=== PATIENT | female | born 1975 | race Caucasian/White ===

== ENCOUNTER 2016-09-05 09:28 | Outpatient (CLI) | payer OTHER ==
[~2016-09-05] VITALS: Ht 165.1 cm; Wt 124.7 kg
[~2016-09-05 09:28] MED LIST: ABILIFY2 MG PO; ALPRAZOLAM0.5 MG PO; ATARAX,VISTARIL25 MG PO; BENADRYL25 MG PO; BENTYL20 MG PO; CHILD ASPIRIN81 M1 PO; COUMADIN1 MG PO; DIAZEPAM5 MG PO; EFFEXOR XR150 MG PO; EFFEXOR75 MG PO; FIORICET,ESG1 TABLET PO; HUMALOG100 UNIT/1 SC; HUMULIN 70100 UNIT/2 SC; HUMULIN N100 UNITS/ SC; HYDROCHLOROTHIAZIDE PO; JANUVIA100 MG PO; LEVOTHYROXINE50 MCG PO; LEXAPRO20 MG PO; LOESTRIN 241 TABLET PO; LOVENOX100 MG/1 M SC; LOVENOX150 MG/1 M SC; LOVENOX80 MG/0.8 SC; METFORMIN HCL500 MG PO; METOPROLOL SUCC50 MG PO; MYRBETRIQ25 MG PO; NORCO 5/3251 TABLET PO; PAXIL30 MG PO; PAXIL40 MG PO; PROTONIX40 MG PO; PROZAC20 MG PO; TRAZODONE HCL100 MG PO; VENLAFAXINE HC150 MG PO; XANAX XR1 MG PO; XANAX XR2 MG PO; XANAX0.5 MG PO; XARELTO15 MG PO; XARELTO20 MG PO; ZANTAC150 MG PO; [UNRECOGNIZED DRUG - OTHER] MISC
[2016-09-05 10:32] LABS: EOSINOPHIL (%) 0.1 % (0-5); HEMATOCRIT 34.6 % (36.0-46.0); IMMATURE GRANULOCYTE (%) 0.3 % (0.0-0.7); IMMATURE GRANULOCYTE COUNT 0.5 K/uL; LYMPHOCYTE COUNT 2.6 K/uL (1.0-2.8); MCH 29.7 PG (29.0-34.0); MCHC 33.8 G/DL (30.0-36.0); MCV 87.8 FL (83-99); MEAN PLAT.VOLUME 10.1 uM^3 (9.5-12.4); MONOCYTE (%) 4.4 % (3-12); MONOCYTE COUNT 0.8 K/uL (0-0.8); NEUTROPHIL (%) 80.4 % (45-76); NEUTROPHIL COUNT 13.9 K/uL (1.8-6.4); PLATELET COUNT 409 K/uL (156-360); RBC DIS.WIDTH-CV 15.3 % (11.8-14.6); RED BLOOD COUNT 3.94 M/uL (3.80-5.20); WHITE BLOOD COUNT 17.3 K/uL (4.1-10.2)
[2016-09-05 10:41] LABS: CHLORIDE 107 mEq/L (99-109); POTASSIUM 3.7 mEq/L (3.7-5.4); SODIUM 137 mEq/L (136-147)
[2016-09-05 10:43] LABS: GLUCOSE 170 mg/dL (70-99)
[2016-09-05 10:44] LABS: ADD MIUA? YES; BILIRUBIN NEGATIVE; BLOOD NEGATIVE; COLOR YELLOW ((YELLOW)); GLUCOSE (STRIP) NEGATIVE; KETONES TRACE; LEUKOCYTES SMALL; NITRITE NEGATIVE; PH, URINE 6.5 (5-8); PROTEIN (STRIP) NEGATIVE; SPECIFIC GRAVITY 1.007 (1.000-1.030); UROBILINOGEN 0.2 MG/DL (0.2-1.0)
[2016-09-05 10:45] LABS: ANION GAP 12 MEQ/L (2-14)
[2016-09-05 10:46] LABS: TOTAL BILIRUBIN 0.5 mg/dL (0.0-1.0)
[2016-09-05 10:47] LABS: ALKALINE PHOSPHATASE 134 IU/L (3-129); GFR ESTIMATE (CALCULATED) > 59 mL/min/
[2016-09-05 10:48] LABS: UREA NITROGEN (BUN) 6 mg/dL (9-23)
[2016-09-05 10:50] LABS: URIC ACID 4.2 mg/dL (3.1-9.2)
[2016-09-05 11:14] LABS: EPITHELIAL CELLS 2+; MUCUS NONE SEEN; RED BLOOD CELLS NONE SEEN /HPF (0-5)
[2016-09-05 11:15] LABS: BACTERIA 1+; CASTS NONE SEEN /LPF; CRYSTALS NONE SEEN; UCUL ADDED? NO
[2016-09-05 11:22] LABS: LACTATE DEHYDROGENASE 251 IU/L (20-246)
[2016-09-05] MEDS ORDERED: ARIPIPRAZOLE5 MG PO (12:24)
[2016-09-05] MEDS ORDERED: HUMULIN N100 UNITS/ SC (12:28)
[2016-09-05] MEDS ORDERED: PRENATAL TABLE1 EAC3 PO (12:28)
[2016-09-05] MEDS ORDERED: LEVO-T75 MCG PO (12:29)
[2016-09-05] MEDS ORDERED: DIAZEPAM5 MG PO (12:30)
[2016-09-05] MEDS ORDERED: AMBIEN10 MG PO (12:30)
[2016-09-05] MEDS ORDERED: MAKENA250 MG/11 IM (12:30)
[2016-09-05] MEDS ORDERED: SENNA PLUS TAB1 EACH PO (12:31)
[2016-09-05] MEDS ORDERED: HUMALOG100 UNIT/1 SC ×3 (12:33→12:34)
[2016-09-05 13:37] VITALS: BP 119/68
[2016-09-05 15:03] LABS: EOSINOPHIL (%) 0.1 % (0-5); HEMATOCRIT 33.2 % (36.0-46.0); IMMATURE GRANULOCYTE (%) 0.4 % (0.0-0.7); IMMATURE GRANULOCYTE COUNT 0.1 K/uL; LYMPHOCYTE COUNT 2.2 K/uL (1.0-2.8); MCHC 32.5 G/DL (30.0-36.0); MCV 89.2 FL (83-99); MEAN PLAT.VOLUME 10.2 uM^3 (9.5-12.4); MONOCYTE (%) 4.8 % (3-12); MONOCYTE COUNT 0.7 K/uL (0-0.8); NEUTROPHIL (%) 78.7 % (45-76); NEUTROPHIL COUNT 10.7 K/uL (1.8-6.4); PLATELET COUNT 356 K/uL (156-360); RBC DIS.WIDTH-CV 15.7 % (11.8-14.6); RBC DIS.WIDTH-SD 50.7 % (39-53); RED BLOOD COUNT 3.72 M/uL (3.80-5.20); WHITE BLOOD COUNT 13.6 K/uL (4.1-10.2)
[2016-09-05 15:24] LABS: ANION GAP 10 MEQ/L (2-14); CHLORIDE 107 MEQ/L (99-109); POTASSIUM 4.1 MEQ/L (3.7-5.4); SAMPLE HEMOLYSIS CHECK 0; SAMPLE ICTERIC CHECK 0; SAMPLE LIPEMIA CHECK 0; SODIUM 139 MEQ/L (136-147); TOTAL BILIRUBIN 0.4 MG/DL (0.0-1.0)
[2016-09-05 15:29] LABS: ALKALINE PHOSPHATASE 119 IU/L (3-129); GFR ESTIMATE (CALCULATED) > 59 mL/min/; UREA NITROGEN (BUN) 5 mg/dL (9-23)
[2016-09-05 15:36] LABS: GLUCOSE 119 mg/dL (70-99); LACTATE DEHYDROGENASE 190 IU/L (20-246)
[2016-09-05 17:17] VITALS: BP 116/59
[2016-09-05 20:17] VITALS: BP 121/67
[2016-09-05 20:55] LABS: MCH 29.7 PG (29.0-34.0); MCHC 33.2 G/DL (30.0-36.0); MCV 89.5 FL (83-99); MEAN PLAT.VOLUME 10.5 uM^3 (9.5-12.4); PLATELET COUNT 370 K/uL (156-360); RBC DIS.WIDTH-CV 15.5 % (11.8-14.6); WHITE BLOOD COUNT 12.8 K/uL (4.1-10.2)
[2016-09-05 21:19] LABS: ALKALINE PHOSPHATASE 109 IU/L (3-129); ANION GAP 10 MEQ/L (2-14); CHLORIDE 106 MEQ/L (99-109); GFR ESTIMATE (CALCULATED) > 59 mL/min/; GLUCOSE 121 mg/dL (70-99); SAMPLE HEMOLYSIS CHECK 0; SAMPLE ICTERIC CHECK 0; SAMPLE LIPEMIA CHECK 0; SODIUM 136 MEQ/L (136-147); TOTAL BILIRUBIN 0.4 MG/DL (0.0-1.0); UREA NITROGEN (BUN) 5 mg/dL (9-23)
[2016-09-05 22:48] LABS: SAMPLE HEMOLYSIS CHECK 0; SAMPLE ICTERIC CHECK 0; SAMPLE LIPEMIA CHECK 0
[2016-09-05 22:54] LABS: SERUM ETHYL ALCOHOL < 10 mg/dL
[2016-09-05 23:12] LABS: AMPHETAMINES QUANT VALUE 0 NG/ML; BARBITUATES QUANT VALUE 0 NG/ML; BENZODIAZEPINES, URINE SCREEN POSITIVE (200 ng/mL); MARIJUANA QUANT VALUE 0 NG/ML; OPIATES QUANTITATIVE VALUE 0 NG/ML; PHENCYCLIDINE QUANT VALUE 0 NG/ML
[2016-09-05 23:17] VITALS: BP 120/65
[2016-09-06 04:18] VITALS: BP 117/59
[2016-09-06 05:59] LABS: HEMATOCRIT 32.3 % (36.0-46.0); MCH 29.1 PG (29.0-34.0); MCHC 32.5 G/DL (30.0-36.0); MCV 89.5 FL (83-99); MEAN PLAT.VOLUME 10.4 uM^3 (9.5-12.4); PLATELET COUNT 342 K/uL (156-360); RBC DIS.WIDTH-CV 15.7 % (11.8-14.6); RBC DIS.WIDTH-SD 50.7 % (39-53); RED BLOOD COUNT 3.61 M/uL (3.80-5.20); WHITE BLOOD COUNT 12.8 K/uL (4.1-10.2)
[2016-09-06 06:23] LABS: ALKALINE PHOSPHATASE 103 IU/L (3-129); AMYLASE 18 IU/L (1-118); ANION GAP 10 MEQ/L (2-14); CHLORIDE 104 MEQ/L (99-109); GFR ESTIMATE (CALCULATED) > 59 mL/min/; GLUCOSE 95 mg/dL (70-99); LIPASE 16 U/L (1.0-51.0); POTASSIUM 3.8 MEQ/L (3.7-5.4); SAMPLE HEMOLYSIS CHECK 0; SAMPLE ICTERIC CHECK 0; SAMPLE LIPEMIA CHECK 0; SODIUM 135 MEQ/L (136-147); UREA NITROGEN (BUN) 6 mg/dL (9-23)
[2016-09-06 06:26] LABS: TOTAL BILIRUBIN 0.5 MG/DL (0.0-1.0)
[2016-09-06 08:28] VITALS: BP 138/76
[2016-09-06 09:40] LABS: POINT-OF-CARE METER ID UU13113742
[2016-09-06 10:30] LABS: HBSG INDEX 0.14
[2016-09-06 10:31] LABS: HPCA INDEX 0.19
[2016-09-06 11:07] LABS: POINT-OF-CARE METER ID UU13113742
[2016-09-06 12:43] LABS: POINT-OF-CARE METER ID UU13113692; POINT-OF-CARE USER ID RADDNY
[2016-09-06 12:43] LABS: POINT-OF-CARE METER ID UU13113692
[2016-09-06 12:43] LABS: POINT-OF-CARE METER ID UU13113692
[2016-09-06 13:06] LABS: POINT-OF-CARE METER ID UU13113742
[2016-09-06 15:17] VITALS: BP 125/61
[2016-09-06 15:21] LABS: POINT-OF-CARE METER ID UU13113742
[2016-09-06 15:21] LABS: POINT-OF-CARE METER ID UU13113742
[2016-09-06 15:23] LABS: POINT-OF-CARE METER ID UU13113742
[2016-09-06 16:30] LABS: POINT-OF-CARE METER ID UU13113742
[2016-09-06 17:10] LABS: POINT-OF-CARE METER ID UU13113742
[2016-09-06 17:48] LABS: POINT-OF-CARE METER ID UU13113742
[2016-09-06 19:30] VITALS: BP 120/56
[2016-09-06 19:41] LABS: POINT-OF-CARE METER ID UU13113742
[2016-09-06 22:43] LABS: POINT-OF-CARE METER ID UU13113742
[2016-09-06 23:50] VITALS: BP 108/56
[2016-09-07 04:14] VITALS: BP 130/60
[2016-09-07 06:23] LABS: POINT-OF-CARE METER ID UU13113742
[2016-09-07 07:41] VITALS: BP 116/59
[2016-09-07 08:02] LABS: HEMATOCRIT 33.8 % (36.0-46.0); MCH 28.9 PG (29.0-34.0); MCV 90.4 FL (83-99); MEAN PLAT.VOLUME 10.2 uM^3 (9.5-12.4); PLATELET COUNT 351 K/uL (156-360); RBC DIS.WIDTH-CV 15.8 % (11.8-14.6); RBC DIS.WIDTH-SD 51.8 % (39-53); RED BLOOD COUNT 3.74 M/uL (3.80-5.20); WHITE BLOOD COUNT 14.2 K/uL (4.1-10.2)
[2016-09-07 08:13] LABS: ANION GAP 9 MEQ/L (2-14); CHLORIDE 103 MEQ/L (99-109); POTASSIUM 4.1 MEQ/L (3.7-5.4); SAMPLE HEMOLYSIS CHECK 0; SAMPLE ICTERIC CHECK 0; SAMPLE LIPEMIA CHECK 0; SODIUM 136 MEQ/L (136-147); TOTAL BILIRUBIN 0.4 MG/DL (0.0-1.0)
[2016-09-07 08:19] LABS: ALKALINE PHOSPHATASE 113 IU/L (3-129); GFR ESTIMATE (CALCULATED) > 59 mL/min/; GLUCOSE 88 mg/dL (70-99); UREA NITROGEN (BUN) 8 mg/dL (9-23)
[2016-09-07 09:44] LABS: POINT-OF-CARE METER ID UU13113774
[2016-09-07 12:38] LABS: POINT-OF-CARE METER ID UU13113774
[2016-09-07 13:18] LABS: POINT-OF-CARE METER ID UU13113774
[2016-09-07 13:28] LABS: POINT-OF-CARE METER ID UU13113742
[2016-09-07 13:29] LABS: POINT-OF-CARE METER ID UU13113742
[2016-09-07] MEDS ORDERED: LORAZEPAM1 MG PO (13:42)
[2016-09-07] MEDS ORDERED: SYNTHROID100 MCG PO (16:52)
[2016-09-07 16:57] LABS: POINT-OF-CARE METER ID UU13113774
== END 2016-09-07 17:20 | disposition home or self-care (01) ==
LOC: EME → EDBD 09:28 → LDRP-OP 09:28 → 2WEST 13:31 → EDSTATUS 13:31 → 2WEST 13:31
PROVIDERS: Emergency Medicine; Obstetrics & Gynecology
DX: O99.342 Other mental disorders complicating pregnancy, second trimester (principal); F41.0 Panic disorder [episodic paroxysmal anxiety]; O10.012 Pre-existing essential hypertension complicating pregnancy, second trimester; O24.312 Unspecified pre-existing diabetes mellitus in pregnancy, second trimester; E11.9 Type 2 diabetes mellitus without complications; O34.32 Maternal care for cervical incompetence, second trimester; O99.282 Endocrine, nutritional and metabolic diseases complicating pregnancy, second trimester; R79.89 Other specified abnormal findings of blood chemistry; E03.9 Hypothyroidism, unspecified; F41.9 Anxiety disorder, unspecified; Z3A.26 26 weeks gestation of pregnancy; Z86.718 Personal history of other venous thrombosis and embolism; O09.522 Supervision of elderly multigravida, second trimester; O09.892 Supervision of other high risk pregnancies, second trimester
CPT/HCPCS: 59025; 76705; 80053; 81003; 81050; 82150; 82948; 83615; 83690; 84156; 84550; 85025; 85025 91; 85027; 86803; 87340; 99281; 99284; G0378; G0480; J0702; J1650; J1815; J2060; J7030

== ENCOUNTER 2016-10-22 17:21 | Emergency (ER) | payer OTHER ==
[~2016-10-22] VITALS: Ht 165.1 cm; Wt 119.7 kg
[~2016-10-22 17:21] MED LIST changes: +AMBIEN10 MG PO; +ARIPIPRAZOLE5 MG PO; +LEVO-T75 MCG PO; +LORAZEPAM1 MG PO; +MAKENA250 MG/11 IM; +PRENATAL TABLE1 EAC3 PO; +SENNA PLUS TAB1 EACH PO; +SYNTHROID100 MCG PO
[2016-10-22 18:06] LABS: HEMATOCRIT 36.8 % (36.0-46.0); MCH 27.8 PG (29.0-34.0); MCHC 32.6 G/DL (30.0-36.0); MCV 85.2 FL (83-99); PLATELET COUNT 334 K/uL (156-360); RBC DIS.WIDTH-CV 15.6 % (11.8-14.6); RBC DIS.WIDTH-SD 47.3 % (39-53); RED BLOOD COUNT 4.32 M/uL (3.80-5.20); WHITE BLOOD COUNT 13.8 K/uL (4.1-10.2)
[2016-10-22 18:14] LABS: CHLORIDE 106 mEq/L (99-109); POTASSIUM 4.2 mEq/L (3.7-5.4); SODIUM 136 mEq/L (136-147)
[2016-10-22 18:16] LABS: GLUCOSE 88 mg/dL (70-99)
[2016-10-22 18:17] LABS: ANION GAP 10 MEQ/L (2-14)
[2016-10-22 18:19] LABS: SERUM ETHYL ALCOHOL < 10 mg/dL
[2016-10-22 18:20] LABS: GFR ESTIMATE (CALCULATED) > 59 mL/min/
[2016-10-22 18:21] LABS: UREA NITROGEN (BUN) 7 mg/dL (9-23)
[2016-10-22 18:42] LABS: AMPHETAMINE NEGATIVE (500 ng/mL); BARBITURATES NEGATIVE (200 ng/mL); BENZODIAZEPINES PRESUMPTIVE POSITIVE (150 ng/mL); COCAINE NEGATIVE (150 ng/mL); INTERNAL CONTROLS VALID? YES; METHADONE NEGATIVE (200 ng/mL); METHAMPHETAMINE NEGATIVE (500 ng/mL); OPIATES (MORPHINE) PRESUMPTIVE POSITIVE (100 ng/mL); OXYCODONE NEGATIVE (100 ng/mL); PHENCYCLIDINE NEGATIVE (25 ng/mL); PROPOXYPHENE NEGATIVE (300 ng/mL); THC CANNABINOIDS NEGATIVE (50 ng/mL); TRICYCLIC ANTIDEPRESSANTS NEGATIVE (300 ng/mL)
[2016-10-22 18:43] LABS: ADD MEDTOX COMMENT Y
[2016-10-22 19:21] LABS: BENZODIAZEPINES QUANT VALUE 0 NG/ML; OPIATES QUANTITATIVE VALUE 0 NG/ML
[2016-10-22] MEDS ORDERED: ATIVAN2 MG PO (19:21)
[2016-10-22 19:26] LABS: BENZODIAZEPINES, URINE SCREEN Negative (200 ng/mL)
[2016-10-22 20:31] VITALS: BP 131/87
== END 2016-10-22 20:33 | disposition home or self-care (01) ==
LOC: EME 17:21
DX: O99.343 Other mental disorders complicating pregnancy, third trimester (principal); F32.9 Major depressive disorder, single episode, unspecified; D72.829 Elevated white blood cell count, unspecified; O09.523 Supervision of elderly multigravida, third trimester; O24.313 Unspecified pre-existing diabetes mellitus in pregnancy, third trimester; E11.9 Type 2 diabetes mellitus without complications; O10.913 Unspecified pre-existing hypertension complicating pregnancy, third trimester; Z79.4 Long term (current) use of insulin; Z3A.33 33 weeks gestation of pregnancy; Z79.82 Long term (current) use of aspirin
CPT/HCPCS: 80048; 84999; 85027; 90839; 99281; 99285; G0480

== ENCOUNTER 2016-10-31 11:23 | Inpatient (IN) | payer OTHER ==
[2016-10-31] VITALS (7 sets, daily range): BP systolic 116–129; BP diastolic 58–70
[~2016-10-31] VITALS: Ht 165.1 cm; Wt 120.2 kg
[~2016-10-31 11:23] MED LIST changes: +ATIVAN2 MG PO
[2016-10-31] MEDS ORDERED: LO-DOSE ASPIRIN81 M2 PO (12:32)
[2016-10-31] MEDS ORDERED: AMBIEN10 MG PO (12:33)
[2016-10-31] MEDS ORDERED: SEROQUEL100 MG PO (12:33)
[2016-10-31 13:04] LABS: EOSINOPHIL (%) 0.7 % (0-5); EOSINOPHIL COUNT 0.1 K/uL (0-0.3); HEMATOCRIT 33.7 % (36.0-46.0); IMMATURE GRANULOCYTE (%) 0.2 % (0.0-0.7); MCH 27.6 PG (29.0-34.0); MCHC 32.6 G/DL (30.0-36.0); MCV 84.7 FL (83-99); MEAN PLAT.VOLUME 11.8 uM^3 (9.5-12.4); MONOCYTE (%) 4.9 % (3-12); MONOCYTE COUNT 0.6 K/uL (0-0.8); NEUTROPHIL (%) 69.4 % (45-76); NEUTROPHIL COUNT 8.5 K/uL (1.8-6.4); PLATELET COUNT 302 K/uL (156-360); RBC DIS.WIDTH-CV 15.6 % (11.8-14.6); RBC DIS.WIDTH-SD 48.3 % (39-53); RED BLOOD COUNT 3.98 M/uL (3.80-5.20); WHITE BLOOD COUNT 12.3 K/uL (4.1-10.2)
[2016-10-31 13:08] LABS: ALKALINE PHOSPHATASE 126 IU/L (3-129); ANION GAP 10 MEQ/L (2-14); CHLORIDE 102 MEQ/L (99-109); GFR ESTIMATE (CALCULATED) > 59 mL/min/; GLUCOSE 131 mg/dL (70-99); POTASSIUM 4.6 MEQ/L (3.7-5.4); SAMPLE HEMOLYSIS CHECK 0; SAMPLE ICTERIC CHECK 0; SAMPLE LIPEMIA CHECK 0; SODIUM 133 MEQ/L (136-147); TOTAL BILIRUBIN 0.4 MG/DL (0.0-1.0); UREA NITROGEN (BUN) 7 mg/dL (9-23)
[2016-10-31 13:10] LABS: PROTHROMBIN TIME 9.9 (9.2-11.2); PTT 29.6 (25-32)
[2016-10-31 16:24] LABS: POINT-OF-CARE METER ID UU14188576
[2016-11-01] VITALS (21 sets, daily range): BP systolic 99–145; BP diastolic 55–76
[2016-11-01 00:16] LABS: POINT-OF-CARE METER ID UU13113692
[2016-11-01 00:16] LABS: POINT-OF-CARE METER ID UU13113692
[2016-11-01 05:58] LABS: POINT-OF-CARE METER ID UU14188576
[2016-11-01 10:54] LABS: POINT-OF-CARE METER ID UU14188576
[2016-11-01 15:06] LABS: POINT-OF-CARE METER ID UU14188576
[2016-11-01 15:35] LABS: DRSB INTERNAL CONTROL PASS; PROBE CHECK PASS; SPECIMEN PROCESSING CONTROL PASS
[2016-11-01 18:56] LABS: POINT-OF-CARE METER ID UU14188576
[2016-11-01] MEDS ORDERED: IBUPROFEN800 MG PO (20:36)
[2016-11-01] MEDS ORDERED: ENDOCET 5-3251 EACH PO (20:36)
[2016-11-01 20:39] LABS: POINT-OF-CARE METER ID UU13113675
[2016-11-02] VITALS (9 sets, daily range): BP systolic 100–128; BP diastolic 53–79
[2016-11-02 06:46] LABS: EOSINOPHIL (%) 0.3 % (0-5); IMMATURE GRANULOCYTE (%) 0.4 % (0.0-0.7); LYMPHOCYTE COUNT 2.6 K/uL (1.0-2.8); MCH 26.5 PG (29.0-34.0); MCHC 31.1 G/DL (30.0-36.0); MCV 85.2 FL (83-99); MEAN PLAT.VOLUME 11.1 uM^3 (9.5-12.4); MONOCYTE (%) 4.8 % (3-12); MONOCYTE COUNT 0.5 K/uL (0-0.8); NEUTROPHIL (%) 70.3 % (45-76); NEUTROPHIL COUNT 7.6 K/uL (1.8-6.4); PLATELET COUNT 255 K/uL (156-360); RBC DIS.WIDTH-CV 15.7 % (11.8-14.6); RBC DIS.WIDTH-SD 49.1 % (39-53); WHITE BLOOD COUNT 10.8 K/uL (4.1-10.2)
[2016-11-02 06:47] LABS: RED BLOOD COUNT 3.17 M/uL (3.80-5.20)
[2016-11-02 10:14] LABS: POINT-OF-CARE METER ID UU13113692
[2016-11-02 10:14] LABS: POINT-OF-CARE METER ID UU13113692
[2016-11-03] VITALS (7 sets, daily range): BP systolic 111–167; BP diastolic 60–77
[2016-11-03 18:34] LABS: POINT-OF-CARE METER ID UU14188576; POINT-OF-CARE USER ID 608261309
[2016-11-03 21:41] LABS: POINT-OF-CARE METER ID UU14188576
[2016-11-04 04:02] VITALS: BP 122/68
[2016-11-04 06:22] LABS: POINT-OF-CARE METER ID UU13113770
[2016-11-04 07:41] VITALS: BP 130/62
[2016-11-04 09:09] LABS: POINT-OF-CARE METER ID UU14188576
[2016-11-04 11:14] LABS: POINT-OF-CARE METER ID UU14188576
[2016-11-04 11:22] VITALS: BP 136/68
[2016-11-04 11:51] LABS: POINT-OF-CARE METER ID UU14188576
[2016-11-04 13:36] LABS: POINT-OF-CARE METER ID UU14188576
[2016-11-04 16:55] LABS: POINT-OF-CARE METER ID UU14188576
[2016-11-04 18:27] LABS: POINT-OF-CARE METER ID UU13113742
[2016-11-04 21:30] VITALS: BP 178/73
[2016-11-04 21:32] VITALS: BP 160/76
[2016-11-04 21:45] LABS: POINT-OF-CARE METER ID UU13113742
[2016-11-05 00:47] VITALS: BP 145/70
[2016-11-05 06:32] VITALS: BP 160/74
[2016-11-05 06:41] LABS: POINT-OF-CARE METER ID UU14188576
[2016-11-05 07:38] VITALS: BP 129/69
[2016-11-05 10:07] LABS: POINT-OF-CARE METER ID UU14188576
[2016-11-05 12:31] LABS: POINT-OF-CARE METER ID UU14188576
[2016-11-08 09:20] LABS: POINT-OF-CARE METER ID UU13113692
[2016-11-08 09:20] LABS: POINT-OF-CARE METER ID UU13113692
[2016-11-08 09:20] LABS: POINT-OF-CARE METER ID UU13113692
[2016-11-08 09:21] LABS: POINT-OF-CARE METER ID UU13113692
[2016-11-08 09:21] LABS: POINT-OF-CARE METER ID UU13113692
[2016-11-08 09:21] LABS: POINT-OF-CARE METER ID UU13113692
[2016-11-08 09:21] LABS: POINT-OF-CARE METER ID UU13113692
[2016-11-08 09:21] LABS: POINT-OF-CARE METER ID UU13113692
== END 2016-11-05 13:20 | disposition home or self-care (01) | DRG 765 ==
LOC: LDRP-OP → 2WEST 11:24 → LDRP-OP 01-07 22:24
PROVIDERS: Obstetrics & Gynecology
PROC: 3E033VJ Introduction of Other Hormone into Peripheral Vein, Percutaneous Approach (ICD-10-PCS; principal; 2016-10-31)
PROC: 10907ZC Drainage of Amniotic Fluid, Therapeutic from Products of Conception, Via Natural or Artificial Opening (ICD-10-PCS; 2016-11-01)
PROC: 00HU33Z Insertion of Infusion Device into Spinal Canal, Percutaneous Approach (ICD-10-PCS; 2016-11-01)
PROC: 10D00Z1 Extraction of Products of Conception, Low, Open Approach (ICD-10-PCS; 2016-11-01)
PROC: 3E0S3CZ (ICD-10-PCS; 2016-11-01)
PROC: [UNRECOGNIZED PROCEDURE] (2016-11-01)
DX: O10.02 Pre-existing essential hypertension complicating childbirth (principal); O24.12 Pre-existing type 2 diabetes mellitus, in childbirth; Z68.41 Body mass index [BMI] 40.0-44.9, adult; O26.873 Cervical shortening, third trimester; O76 Abnormality in fetal heart rate and rhythm complicating labor and delivery; O69.81X0 Labor and delivery complicated by cord around neck, without compression, not applicable or unspecified; E11.9 Type 2 diabetes mellitus without complications; Z3A.34 34 weeks gestation of pregnancy; Z37.0 Single live birth; O09.523 Supervision of elderly multigravida, third trimester; E66.9 Obesity, unspecified; O99.214 Obesity complicating childbirth; O99.344 Other mental disorders complicating childbirth; F32.9 Major depressive disorder, single episode, unspecified; F41.0 Panic disorder [episodic paroxysmal anxiety]
CPT/HCPCS: 80053; 82948; 85025; 85610; 85730; 86850; 86900; 86901; 87081; 87653; 88307; C1755; G0378; J0690; J0702; J1170; J1650; J1815; J2060; J2250; J2274; J2405; J2540; J2590; J2795; J3010; J7120

== ENCOUNTER 2017-01-06 06:34 | Emergency (ER) | payer OTHER ==
[~2017-01-06] VITALS: Ht 165.1 cm; Wt 116.2 kg
[~2017-01-06 06:34] MED LIST changes: +ENDOCET 5-3251 EACH PO; +IBUPROFEN800 MG PO; +LO-DOSE ASPIRIN81 M2 PO; +SEROQUEL100 MG PO
[2017-01-06] MEDS ORDERED: PAXIL30 MG PO (07:06)
[2017-01-06] MEDS ORDERED: SYNTHROID125 MCG PO (07:06)
[2017-01-06] MEDS ORDERED: ABILIFY2 MG PO (07:07)
[2017-01-06] MEDS ORDERED: ATIVAN2 MG PO (07:07)
[2017-01-06] MEDS ORDERED: ZANTAC150 MG PO (07:08)
[2017-01-06] MEDS ORDERED: LISINOPRIL5 MG PO (07:08)
[2017-01-06] MEDS ORDERED: METFORMIN HCL500 MG PO (07:09)
[2017-01-06] MEDS ORDERED: SEROQUEL50 MG PO (07:09)
[2017-01-06 09:01] VITALS: BP 122/94
== END 2017-01-06 09:12 | disposition home or self-care (01) ==
LOC: EME 06:34
DX: F41.9 Anxiety disorder, unspecified (principal); G47.00 Insomnia, unspecified; R25.1 Tremor, unspecified; I10 Essential (primary) hypertension; E11.9 Type 2 diabetes mellitus without complications; E03.9 Hypothyroidism, unspecified; Z79.4 Long term (current) use of insulin; Z79.82 Long term (current) use of aspirin; Z88.8 Allergy status to other drugs, medicaments and biological substances
CPT/HCPCS: 90839; 99281; 99283

== ENCOUNTER 2017-01-12 20:54 | Emergency (ER) | payer OTHER ==
[~2017-01-12] VITALS: Ht 165.1 cm; Wt 115.8 kg
[~2017-01-12 20:54] MED LIST changes: +LISINOPRIL5 MG PO; +SEROQUEL50 MG PO; +SYNTHROID125 MCG PO
[2017-01-12 21:59] LABS: EOSINOPHIL (%) 1.1 % (0-5); EOSINOPHIL COUNT 0.1 K/uL (0-0.3); HEMATOCRIT 35.7 % (36.0-46.0); IMMATURE GRANULOCYTE (%) 0.4 % (0.0-0.7); INSTRUMENT ABS NEUTROPHIL CT 6.4 K/uL; LYMPHOCYTE COUNT 3.6 K/uL (1.0-2.8); MCH 25.2 PG (29.0-34.0); MCHC 30.5 G/DL (30.0-36.0); MCV 82.4 FL (83-99); MEAN PLAT.VOLUME 9.8 uM^3 (9.5-12.4); MONOCYTE (%) 6.4 % (3-12); MONOCYTE COUNT 0.7 K/uL (0-0.8); NEUTROPHIL (%) 58.7 % (45-76); NEUTROPHIL COUNT 6.4 K/uL (1.8-6.4); PLATELET COUNT 420 K/uL (156-360); RBC DIS.WIDTH-CV 17.5 % (11.8-14.6); RBC DIS.WIDTH-SD 52.1 % (39-53); RED BLOOD COUNT 4.33 M/uL (3.80-5.20); WHITE BLOOD COUNT 10.9 K/uL (4.1-10.2)
[2017-01-12 22:07] LABS: CHLORIDE 106 mEq/L (99-109); POTASSIUM 4.1 mEq/L (3.7-5.4); SODIUM 139 mEq/L (136-147)
[2017-01-12 22:09] LABS: GLUCOSE 116 mg/dL (70-99)
[2017-01-12 22:10] LABS: ANION GAP 9 MEQ/L (2-14)
[2017-01-12 22:13] LABS: GFR ESTIMATE (CALCULATED) > 59 mL/min/
[2017-01-12 22:14] LABS: UREA NITROGEN (BUN) 10 mg/dL (9-23)
[2017-01-12 22:44] VITALS: BP 107/74
== END 2017-01-12 22:45 | disposition home or self-care (01) ==
LOC: EME 20:54
PROVIDERS: Emergency Medicine
DX: R42 Dizziness and giddiness (principal); E11.9 Type 2 diabetes mellitus without complications; I10 Essential (primary) hypertension; Z88.1 Allergy status to other antibiotic agents; Z88.2 Allergy status to sulfonamides
CPT/HCPCS: 80048; 85025; 99281; 99284

== ENCOUNTER 2017-02-06 18:17 | Emergency (ER) | payer OTHER ==
[~2017-02-06] VITALS: Ht 165.1 cm; Wt 113.7 kg
[2017-02-06 20:02] VITALS: BP 99/59
== END 2017-02-06 20:03 | disposition home or self-care (01) ==
LOC: EME 18:17
DX: F32.9 Major depressive disorder, single episode, unspecified (principal); F40.01 Agoraphobia with panic disorder; E11.9 Type 2 diabetes mellitus without complications; I10 Essential (primary) hypertension; E03.9 Hypothyroidism, unspecified; Z79.84 Long term (current) use of oral hypoglycemic drugs
CPT/HCPCS: 90839; 99281; 99284

== ENCOUNTER 2017-03-04 10:19 | Emergency (ER) | payer OTHER ==
[~2017-03-04] VITALS: Ht 165.1 cm; Wt 111.0 kg
[2017-03-04] MEDS ORDERED: ATIVAN1 MG PO (12:18)
[2017-03-04 12:48] VITALS: BP 130/99
== END 2017-03-04 12:49 | disposition home or self-care (01) ==
LOC: EME → EDBD 10:19 → EME 12:49
DX: F40.01 Agoraphobia with panic disorder (principal); F34.1 Dysthymic disorder; I10 Essential (primary) hypertension; E11.9 Type 2 diabetes mellitus without complications; Z79.84 Long term (current) use of oral hypoglycemic drugs
CPT/HCPCS: 90839; 99281; 99284

== ENCOUNTER 2017-03-05 18:15 | Emergency (ER) | payer OTHER ==
[~2017-03-05] VITALS: Ht 175.3 cm; Wt 112.1 kg
[~2017-03-05 18:15] MED LIST changes: +ATIVAN1 MG PO
[2017-03-05 18:54] LABS: HEMATOCRIT 39.5 % (36.0-46.0); MCH 24.7 PG (29.0-34.0); MCHC 30.9 G/DL (30.0-36.0); MEAN PLAT.VOLUME 10.2 uM^3 (9.5-12.4); PLATELET COUNT 522 K/uL (156-360); RBC DIS.WIDTH-CV 17.1 % (11.8-14.6); RBC DIS.WIDTH-SD 49.2 % (39-53); RED BLOOD COUNT 4.94 M/uL (3.80-5.20); WHITE BLOOD COUNT 12.9 K/uL (4.1-10.2)
[2017-03-05 19:06] LABS: CHLORIDE 104 mEq/L (99-109); POTASSIUM 3.9 mEq/L (3.7-5.4); SODIUM 139 mEq/L (136-147)
[2017-03-05 19:08] LABS: GLUCOSE 193 mg/dL (70-99)
[2017-03-05 19:09] LABS: ANION GAP 11 MEQ/L (2-14)
[2017-03-05 19:11] LABS: SERUM ETHYL ALCOHOL < 10 mg/dL
[2017-03-05 19:12] LABS: GFR ESTIMATE (CALCULATED) > 59 mL/min/
[2017-03-05 19:13] LABS: UREA NITROGEN (BUN) 12 mg/dL (9-23)
[2017-03-05 20:26] LABS: AMPHETAMINE NEGATIVE (500 ng/mL); BARBITURATES NEGATIVE (200 ng/mL); BENZODIAZEPINES PRESUMPTIVE POSITIVE (150 ng/mL); COCAINE NEGATIVE (150 ng/mL); INTERNAL CONTROLS VALID? YES; METHADONE NEGATIVE (200 ng/mL); METHAMPHETAMINE NEGATIVE (500 ng/mL); OPIATES (MORPHINE) NEGATIVE (100 ng/mL); OXYCODONE NEGATIVE (100 ng/mL); PHENCYCLIDINE NEGATIVE (25 ng/mL); PROPOXYPHENE NEGATIVE (300 ng/mL); THC CANNABINOIDS NEGATIVE (50 ng/mL); TRICYCLIC ANTIDEPRESSANTS NEGATIVE (300 ng/mL)
[2017-03-05 20:27] LABS: ADD MEDTOX COMMENT Y
[2017-03-05 21:44] LABS: BENZODIAZEPINES QUANT VALUE 0 NG/ML; BENZODIAZEPINES, URINE SCREEN Negative (200 ng/mL)
[2017-03-05 22:30] VITALS: BP 125/86
[2017-03-06 02:53] LABS: ADD MIUA? YES; BILIRUBIN NEGATIVE; BLOOD SMALL; COLOR YELLOW ((YELLOW)); GLUCOSE (STRIP) NEGATIVE; KETONES NEGATIVE; LEUKOCYTES NEGATIVE; NITRITE NEGATIVE; PROTEIN (STRIP) NEGATIVE; SPECIFIC GRAVITY 1.006 (1.000-1.030); UROBILINOGEN 0.2 MG/DL (0.2-1.0)
[2017-03-06 03:13] LABS: BACTERIA 2+ /HPF; EPITHELIAL CELLS 3+ /HPF; MUCUS NONE SEEN /LPF
[2017-03-06 03:14] LABS: CASTS NONE SEEN /LPF; CRYSTALS NONE SEEN
== END 2017-03-05 22:32 ==
LOC: EME 18:15
PROVIDERS: Emergency Medicine
DX: R45.851 Suicidal ideations (principal); F32.9 Major depressive disorder, single episode, unspecified; F41.1 Generalized anxiety disorder; E11.9 Type 2 diabetes mellitus without complications; Z79.84 Long term (current) use of oral hypoglycemic drugs; I10 Essential (primary) hypertension
CPT/HCPCS: 80048; 81003; 84999; 85027; 90837; 99281; 99285; G0480

== ENCOUNTER 2017-03-27 19:01 | Emergency (ER) | payer OTHER ==
[~2017-03-27] VITALS: Ht 165.1 cm; Wt 114.0 kg
[2017-03-27 20:11] LABS: AMPHETAMINE NEGATIVE (500 ng/mL); BARBITURATES NEGATIVE (200 ng/mL); BENZODIAZEPINES PRESUMPTIVE POSITIVE (150 ng/mL); COCAINE NEGATIVE (150 ng/mL); INTERNAL CONTROLS VALID? YES; METHADONE NEGATIVE (200 ng/mL); METHAMPHETAMINE NEGATIVE (500 ng/mL); OPIATES (MORPHINE) NEGATIVE (100 ng/mL); OXYCODONE NEGATIVE (100 ng/mL); PHENCYCLIDINE NEGATIVE (25 ng/mL); PROPOXYPHENE NEGATIVE (300 ng/mL); THC CANNABINOIDS NEGATIVE (50 ng/mL); TRICYCLIC ANTIDEPRESSANTS NEGATIVE (300 ng/mL)
[2017-03-27 20:12] LABS: ADD MEDTOX COMMENT Y
[2017-03-27 20:48] LABS: BENZODIAZEPINES QUANT VALUE 0 NG/ML; BENZODIAZEPINES, URINE SCREEN Negative (200 ng/mL)
[2017-03-27 21:15] LABS: HEMATOCRIT 35.4 % (36.0-46.0); MCH 24.9 PG (29.0-34.0); MCHC 31.1 G/DL (30.0-36.0); MCV 80.1 FL (83-99); MEAN PLAT.VOLUME 10.3 uM^3 (9.5-12.4); PLATELET COUNT 444 K/uL (156-360); RBC DIS.WIDTH-SD 49.5 % (39-53); RED BLOOD COUNT 4.42 M/uL (3.80-5.20); WHITE BLOOD COUNT 10.4 K/uL (4.1-10.2)
[2017-03-27 21:25] LABS: CHLORIDE 104 mEq/L (99-109); POTASSIUM 4.3 mEq/L (3.7-5.4); SODIUM 138 mEq/L (136-147)
[2017-03-27 21:27] LABS: GLUCOSE 146 mg/dL (70-99)
[2017-03-27 21:28] LABS: ANION GAP 10 MEQ/L (2-14)
[2017-03-27 21:30] LABS: SERUM ETHYL ALCOHOL < 10 mg/dL
[2017-03-27 21:31] LABS: GFR ESTIMATE (CALCULATED) > 59 mL/min/
[2017-03-27 21:32] LABS: UREA NITROGEN (BUN) 11 mg/dL (9-23)
[2017-03-27 21:39] LABS: QUANTITATIVE HCG < 4.0 MIU/ML
[2017-03-28 02:15] VITALS: BP 108/69
== END 2017-03-28 02:15 | disposition home or self-care (01) ==
LOC: EME 19:01
DX: F32.9 Major depressive disorder, single episode, unspecified (principal); F41.1 Generalized anxiety disorder; F40.01 Agoraphobia with panic disorder; E11.9 Type 2 diabetes mellitus without complications; Z79.84 Long term (current) use of oral hypoglycemic drugs; I10 Essential (primary) hypertension
CPT/HCPCS: 80048; 84702; 84999; 85027; 90839; 99281; 99284; G0480

== ENCOUNTER 2017-04-05 18:47 | Emergency (ER) | payer OTHER ==
[~2017-04-05] VITALS: Ht 165.1 cm; Wt 113.5 kg
[2017-04-05 22:33] LABS: BASOPHIL COUNT 0.1 K/uL (0-0.1); EOSINOPHIL (%) 1.2 % (0-5); EOSINOPHIL COUNT 0.1 K/uL (0-0.3); IMMATURE GRANULOCYTE (%) 0.3 % (0.0-0.7); INSTRUMENT ABS NEUTROPHIL CT 7.1 K/uL; LYMPHOCYTE COUNT 3.7 K/uL (1.0-2.8); MCH 24.4 PG (29.0-34.0); MCHC 30.6 G/DL (30.0-36.0); MCV 79.7 FL (83-99); MEAN PLAT.VOLUME 10.4 uM^3 (9.5-12.4); MONOCYTE (%) 4.8 % (3-12); MONOCYTE COUNT 0.6 K/uL (0-0.8); NEUTROPHIL (%) 61.3 % (45-76); NEUTROPHIL COUNT 7.1 K/uL (1.8-6.4); PLATELET COUNT 427 K/uL (156-360); RBC DIS.WIDTH-CV 16.9 % (11.8-14.6); RBC DIS.WIDTH-SD 48.9 % (39-53); RED BLOOD COUNT 4.39 M/uL (3.80-5.20); WHITE BLOOD COUNT 11.6 K/uL (4.1-10.2)
[2017-04-05 22:51] LABS: CHLORIDE 104 mEq/L (99-109); POTASSIUM 3.8 mEq/L (3.7-5.4); SODIUM 139 mEq/L (136-147)
[2017-04-05 22:53] LABS: GLUCOSE 157 mg/dL (70-99)
[2017-04-05 22:54] LABS: ANION GAP 11 MEQ/L (2-14)
[2017-04-05 22:55] LABS: TOTAL BILIRUBIN 0.3 mg/dL (0.0-1.0)
[2017-04-05 22:56] LABS: SERUM ETHYL ALCOHOL < 10 mg/dL
[2017-04-05 22:57] LABS: ALKALINE PHOSPHATASE 102 IU/L (3-129); GFR ESTIMATE (CALCULATED) > 59 mL/min/
[2017-04-05 22:58] LABS: UREA NITROGEN (BUN) 13 mg/dL (9-23)
[2017-04-05 23:08] LABS: QUANTITATIVE HCG < 4.0 MIU/ML
[2017-04-05 23:13] LABS: ADD MIUA? NO; BILIRUBIN NEGATIVE; BLOOD NEGATIVE; COLOR YELLOW ((YELLOW)); GLUCOSE (STRIP) NEGATIVE; KETONES NEGATIVE; LEUKOCYTES NEGATIVE; NITRITE NEGATIVE; PROTEIN (STRIP) NEGATIVE; SPECIFIC GRAVITY 1.011 (1.000-1.030); UCUL ADDED? NO; UROBILINOGEN 0.2 MG/DL (0.2-1.0)
[2017-04-05 23:38] LABS: AMPHETAMINE NEGATIVE (500 ng/mL); BARBITURATES NEGATIVE (200 ng/mL); BENZODIAZEPINES PRESUMPTIVE POSITIVE (150 ng/mL); COCAINE NEGATIVE (150 ng/mL); INTERNAL CONTROLS VALID? YES; METHADONE NEGATIVE (200 ng/mL); METHAMPHETAMINE NEGATIVE (500 ng/mL); OPIATES (MORPHINE) NEGATIVE (100 ng/mL); OXYCODONE NEGATIVE (100 ng/mL); PHENCYCLIDINE NEGATIVE (25 ng/mL); PROPOXYPHENE NEGATIVE (300 ng/mL); THC CANNABINOIDS NEGATIVE (50 ng/mL); TRICYCLIC ANTIDEPRESSANTS NEGATIVE (300 ng/mL)
[2017-04-05 23:39] LABS: ADD MEDTOX COMMENT Y
[2017-04-06 00:49] LABS: BENZODIAZEPINES QUANT VALUE 0 NG/ML; BENZODIAZEPINES, URINE SCREEN Negative (200 ng/mL)
[2017-04-06 01:06] VITALS: BP 113/73
== END 2017-04-06 01:08 ==
LOC: EME 18:47
PROVIDERS: Emergency Medicine
DX: F32.9 Major depressive disorder, single episode, unspecified (principal); F41.1 Generalized anxiety disorder; F40.01 Agoraphobia with panic disorder; I10 Essential (primary) hypertension; E11.9 Type 2 diabetes mellitus without complications; E03.9 Hypothyroidism, unspecified; Z79.84 Long term (current) use of oral hypoglycemic drugs
CPT/HCPCS: 80053; 81003; 84702; 84999; 85025; 90837; 99281; 99285; G0480

== ENCOUNTER 2017-08-25 12:06 | Emergency (ER) | payer OTHER ==
[~2017-08-25] VITALS: Ht 165.1 cm; Wt 117.0 kg
[2017-08-25] MEDS ORDERED: ZOFRAN4 MG PO (14:51)
[2017-08-25] MEDS ORDERED: PERCOCET 5/31 TABLET PO (14:51)
[2017-08-25 15:53] VITALS: BP 119/65
== END 2017-08-25 15:53 | disposition home or self-care (01) ==
LOC: EME 12:06
DX: M79.662 Pain in left lower leg (principal)
CPT/HCPCS: 93971; 99281; 99283